=== PATIENT | female | born 1995 | race Two or more races ===

== ENCOUNTER 2016-09-10 05:48 | Emergency (ER) | payer OTHER ==
--- NOTE | ~2016-09-10 | CR21 ---
[facility] A Service of [facility] RADIOLOGY TEXT RESULTS PATIENT: HOMERO DE LUNA LOCATION: [facility] : [birth year] UNIT #: [id number] AGE: [address]: EFREN COLIN APRN SEX: F ORDER DR: [id number] [facility] [address] [place], [place] [address] [id number] E MR#: [id number] Acc #: [id number] NAME: HOMERO DE LUNA : 1995 SEX: F STUDY DATE/TIME: 09/10/2016 5:27 UNIT: [facility] ROOM: STUDY DESCRIPTION: CR Ankle Min 3 Views Rt Attending Physician: Efren Colin Aprn Ordering Physician: Efren Colin Aprn Primary Care Physician: Zuleika Marte M.D. MEDICAL IMAGING REPORT This report is preliminary unless electronic signature is present EXAM Right ankle, 3 views. HISTORY Ankle and foot pain after fall tonight. FINDINGS AP, lateral, and oblique projections of the ankle show satisfactory integrity of the joint mortise with a smooth articular surface. There is no identifiable fracture, dislocation, or radiopaque foreign body. IMPRESSION Normal ankle. Dictated by... Gene Neville M.D. THIS IS AN ELECTRONICALLY VERIFIED REPORT Gene Neville M.D. at 09/10/2016 10:06 PM JOLANTA/chapito TD: 09/10/2016 12:41 JOB #: [id number] MEDICAL IMAGING REPORT Page 1 of 1 COPY
--- NOTE | ~2016-09-10 | CR127 ---
[facility] A Service of [facility] RADIOLOGY TEXT RESULTS PATIENT: HOMERO DE LUNA LOCATION: [facility] : [birth year] UNIT #: [id number] AGE: [address]: EFREN COLIN APRN SEX: F ORDER DR: [id number] [facility] [address] [place], [place] [address] [id number] E MR#: [id number] Acc #: [id number] NAME: HOMERO DE LUNA : 1995 SEX: F STUDY DATE/TIME: 09/10/2016 5:25 UNIT: [facility] ROOM: STUDY DESCRIPTION: CR Foot Complete Min 3 View Rt Attending Physician: Efren Colin Aprn Ordering Physician: Efren Colin Aprn Primary Care Physician: Zuleika Marte M.D. MEDICAL IMAGING REPORT This report is preliminary unless electronic signature is present EXAM Right foot 3 views HISTORY Right foot and ankle pain tonight after fall. FINDINGS 3 views of the right foot demonstrate no fracture, dislocation, arthritic or inflammatory change. Soft tissues appear normal. IMPRESSION Negative right foot. Dictated by... Gene Neville M.D. THIS IS AN ELECTRONICALLY VERIFIED REPORT Gene Neville M.D. at 09/10/2016 10:06 PM Terry TD: 09/10/2016 12:43 JOB #: [id number] MEDICAL IMAGING REPORT Page 1 of 1 COPY
[~2016-09-10 05:48] MED LIST: AMLODIPINE BESYL5 MG PO; AMOXIL500 M2 PO; ATARAX PO; BACTRIM DS TABL1 TAB PO; BENADRYL25 MG PO; BIRTH CONTROL PILL PO; FAMOTIDINE PO; FLEXERIL10 MG PO; FLONASE 0.05% N16 G1; GLUCOPHAGE500 MG PO; KEFLEX PO; METFORMIN HCL500 M1 PO; NEURONTIN300 MG PO; NO MEDICATIONS; PREDNISONE PO; SUDAFED30 M1 PO; TYLENOL #3 PO; VOLTAREN50 MG PO; VOLTAREN75 MG PO
== END 2016-09-10 06:25 | disposition home or self-care (01) ==
LOC: CED 05:48
DX: S93.401A Sprain of unspecified ligament of right ankle, initial encounter (principal); X50.1XXA Overexertion from prolonged static or awkward postures, initial encounter; Y92.009 Unspecified place in unspecified non-institutional (private) residence as the place of occurrence of the external cause; I10 Essential (primary) hypertension
CPT/HCPCS: 29540; 73610; 73630; 99283